=== PATIENT | male | born 1995 | race Caucasian/White ===

== ENCOUNTER 2022-04-25 17:48 | Emergency (ER) | payer BC ==
[~2022-04-25] VITALS: Ht 172.7 cm; Wt 68.2 kg
[2022-04-25 17:51] VITALS: BP 131/82
[2022-04-25] MEDS ORDERED: ketorolac trometh inj. 60 MG/2 ML VIAL IM ONE (19:05)
[2022-04-25] MEDS ORDERED: IBUP-1986 PO (19:07)
== END 2022-04-25 19:56 | disposition home or self-care (01) ==
LOC: ER 17:49
DX: S93.401A Sprain of unspecified ligament of right ankle, initial encounter (principal); W17.89XA Other fall from one level to another, initial encounter; Y93.89 Activity, other specified; Y92.89 Other specified places as the place of occurrence of the external cause; Y99.8 Other external cause status
CPT/HCPCS: 73610; 96372; 99283; J1885; 29515